=== PATIENT | male | born 1980 | race Caucasian/White ===

== ENCOUNTER 2017-03-06 23:37 | Emergency (ER) | payer OTHER ==
--- NOTE | ~2017-03-06 | CT16 ---
[facility] A Service of [facility] RADIOLOGY TEXT RESULTS PATIENT: TRAVIS JOHNSON LOCATION: SED : 82 UNIT #: [id number] AGE: [address]: Tyson Olmstead MD SEX: M ORDER DR: [id number] [place] [id number] E MR#: [id number] Acc #: [id number] NAME: TRAVIS JOHNSON. : 1980 SEX: M STUDY DATE/TIME: 03/07/2017 0:59 UNIT: SED ROOM: STUDY DESCRIPTION: CT Angio Chest for PE Attending Physician: Tyson Olmstead M.D. Ordering Physician: Tyson Olmstead M.D. Primary Care Physician: Srini Moe M.D. MEDICAL IMAGING REPORT This report is preliminary unless electronic signature is present. EXAM CTA chest INDICATION Elevated D-dimer. Chest pain for 2 days. Left knee swelling. TECHNIQUE CT angiography of the chest utilizing 100 mL Isovue-370 IV contrast. Coronal 3-D MIP reconstructions and standard sagittal reconstructions were obtained. This CT exam was performed with one or more of the following radiation dose reduction techniques: automatic exposure control, adjustment of mA and/or kV according to patient size, and iterative reconstruction. COMPARISON None available. FINDINGS No pulmonary embolus. No thoracic aortic aneurysm or dissection. No pericardial or pleural effusion. No focal consolidation. Mild bronchial wall thickening can be seen in the setting of acute or chronic bronchitis. Dependent atelectasis is noted in the lung bases, left greater than right. No acute osseous abnormalities. IMPRESSION 1. Negative for pulmonary embolus. [facility] A Service of [facility] RADIOLOGY TEXT RESULTS PATIENT: TRAVIS JOHNSON LOCATION: SED : 82 UNIT #: [id number] AGE: [address]: Tyson Olmstead MD SEX: M ORDER DR: 2. Mild bronchial wall thickening can be seen in the setting of acute or chronic bronchitis. 3. Mild dependent atelectasis in both lung bases, left greater than right. Dictated by... Jasen Garzon M.D. THIS IS AN ELECTRONICALLY VERIFIED REPORT Jasen Garzon M.D. at 03/07/2017 4:10 AM RHIANNA/shelly TD: 03/07/2017 03:03 JOB #: [id number] MEDICAL IMAGING REPORT Page 1 of 1
--- NOTE | ~2017-03-06 | EKG ---
PATIENT: TRAVIS JOHNSON UNIT #: [id number] Ventricular Rate: 97 BPM Atrial Rate: 97 BPM P-R Interval: 128 ms QRS Duration: 98 ms Q-T Interval: 340 ms QTC Calculation(Bezet): 431 ms P [place]: 55 degrees Calculated R [place]: 69 degrees Calculated T [place]: 43 degrees Diagnosis Line: Normal sinus rhythm Diagnosis Line: Normal ECG Diagnosis Line: Diagnosis Line: Confirmed by LUZ ELENA HIDALGO MD ([id number]) on Diagnosis Line: 03/09/2017 8:50:49 AM INTERPRETING MD: ROCKY MEDINA
[~2017-03-06 23:37] MED LIST: BACTRIM DS TABL1 TAB PO; CLEOCIN PO; KEFLEX PO; NO MEDICATIONS; PERCOCET5/325 PO; TYLENOL #3 PO; VICODIN 5/500 T1 TAB PO
[2017-03-06] MEDS ORDERED: METHADONE (23:50)
[2017-03-07 00:09] LABS: BASOPHIL# 0.1 X10e3 (0-0.3); BASOPHIL% 0.9 % (0-2.5); EOSINOPHIL# 0.4 X10e3 (0-0.7); EOSINOPHIL% 4.5 % (0.0-7.0); HEMATOCRIT 41.2 % (38.0-50.0); HEMOGLOBIN 13.9 gm/dL (13.0-16.0); LYMPHOCYTE# 2.3 X10e3 (1.0-3.5); LYMPHOCYTE% 24.4 % (17.0-45.0); MEAN CORPUSCULAR HEMOGLOBIN 29.4 PG (28-34); MEAN CORPUSCULAR HGB CONC 33.8 g/dL (30-36); MEAN PLATELET VOLUME 8.6 FL (6.5-11.5); MONOCYTE# 0.7 X10e3 (0-1.0); NEUTROPHIL# 6.1 X10e3 (1.5-7.1); NEUTROPHIL% 63.2 % (40-75); PLATELET COUNT 214 X10e3 (140-420); RED BLOOD COUNT 4.74 X10e (3.90-5.60); RED CELL DISTRIBUTION WIDTH 13.7 % (11.0-15.5); WHITE BLOOD COUNT 9.6 X10e3 (4.0-10.5)
[2017-03-07 00:10] LABS: DIFF IND NO
[2017-03-07 00:11] LABS: PROTHROMBIN TIME (PATIENT) 11.7 SECONDS (9.5-12.4)
[2017-03-07 00:18] LABS: POC - CKMB 2.6 ng/mL (0.0-7.9); POC - TROPONIN <0.05 ng/mL (<=0.05)
[2017-03-07 00:18] LABS: PARTIAL THROMBOPLASTIN TIME 28.3 SECONDS (25.6-38.1)
[2017-03-07 00:20] LABS: ALBUMIN SERUM 3.8 g/dL (3.5-5.0); BILIRUBIN, DIRECT 0.1 mg/dL (0.0-0.2); BILIRUBIN,INDIRECT 0.4 mg/dL (0.0-0.9); BILIRUBIN,TOTAL 0.5 mg/dL (0.2-2.0); BUN/CREATININE RATIO 12.22; CALCIUM SERUM 8.3 mg/dL (8.4-10.2); CREATININE SERUM 0.9 mg/dL (0.6-1.4); GLOM FILT RATE Estimated 110.3 mL/min (>60); POTASSIUM 3.3 mmol/L (3.5-5.1); PROTEIN TOTAL SERUM 7.1 g/dL (6.0-8.3)
== END 2017-03-07 02:26 | disposition home or self-care (01) ==
LOC: SED 23:37
PROVIDERS: Emergency Medicine
DX: R07.89 Other chest pain (principal); Z90.49 Acquired absence of other specified parts of digestive tract; Z87.891 Personal history of nicotine dependence
CPT/HCPCS: 36415; 71275; 80048; 80076; 82553; 84484; 85025; 85379; 85610; 85730; 93005; 96374; 99284; J1885; Q9967